=== PATIENT | female | born 1950 | race Caucasian/White ===

== ENCOUNTER → 2016-09-21 | Outpatient (CLI) | payer OTHER | LOC: BMCIMAGING 11:20 | PROVIDERS: ATTEND Internal Medicine | DX: M85.80 Other specified disorders of bone density and structure, unspecified site (principal) ==

== ENCOUNTER → 2016-11-24 | Outpatient (CLI) | payer OTHER | LOC: FIMAGING 13:43 | PROVIDERS: ATTEND Neurological Surgery | DX: M50.83 Other cervical disc disorders, cervicothoracic region (principal); Z98.1 Arthrodesis status ==

== ENCOUNTER → 2017-01-17 | Outpatient (CLI) | payer OTHER | LOC: FIMAGING 09:12 | PROVIDERS: ATTEND Physician Assistant | DX: M54.5 Low back pain (principal); M54.6 Pain in thoracic spine; M43.16 Spondylolisthesis, lumbar region; M54.2 Cervicalgia; Z98.1 Arthrodesis status ==

== ENCOUNTER → 2017-04-14 | Outpatient (CLI) | payer OTHER | LOC: BMCIMAGING 14:55 | PROVIDERS: ATTEND Internal Medicine | DX: Z12.31 Encounter for screening mammogram for malignant neoplasm of breast (principal) | CPT/HCPCS: G0202 ==

== ENCOUNTER → 2018-04-11 | Outpatient (CLI) | payer OTHER | LOC: BMCIMAGING 15:35 | PROVIDERS: ATTEND Orthopaedic Surgery Hand Surgery | DX: M18.2 Bilateral post-traumatic osteoarthritis of first carpometacarpal joints (principal) ==

== ENCOUNTER → 2018-04-19 | Outpatient (CLI) | payer OTHER | LOC: BMCIMAGING 09:43 | PROVIDERS: ATTEND Internal Medicine | DX: Z12.31 Encounter for screening mammogram for malignant neoplasm of breast (principal) ==

== ENCOUNTER 2018-04-27 07:32 | Day surgery (SDC) | payer OTHER ==
[2018-04-27] MEDS ORDERED: LIDOCAINE 1% 2 ML INJ ID PRN (07:53)
[2018-04-27] MEDS ORDERED: LR 1,000 ML IV ONE (07:53)
[2018-04-27] MEDS ORDERED: MIDAZOLAM 2 MG/2 ML VIAL IVP ONE (08:59)
--- NOTE | 2018-04-27 09:00 | POSTANESTH ---
Post Anesthetic Evaluation Cardiovascular Status: Normal, Stable Respiratory Status: Normal, Stable Level of Consciousness/Mental Status: Can Participate in Eval, Mildly Sleepy, Arousable Pain Control: Adequate, Prn Tx Ordered Nausea/Vomiting Control: Adequate, Prn Tx Ordered Complications Possibly Related to Anesthesia: None Noted
--- NOTE | 2018-04-27 09:03 | PDANEPAE ---
ANE History of Present Illness 67 yo female with gastric issues and chronic constipation for EGD and flex sig. ANE Past Medical History - Cardiovascular History Hx Hypertension: No Hx Arrhythmias: No Hx Chest Pain: No Hx Coronary Artery / Peripheral Vascular Disease: No Hx CHF / Valvular Disease: No Hx Palpitations: No Cardiovascular History Comment: MITRAL VALVE PROLAPSE - NO SXS OR MEDS - Pulmonary History Hx COPD: No Hx Asthma/Reactive Airway Disease: Yes Hx Recent Upper Respiratory Infection: No Hx Oxygen in Use at Home: No Hx Sleep Apnea: Yes Sleep Apnea Screening Result - Last Documented: Positive Pulmonary History Comment: SEASONAL ASTHMA - ENVIRONMENTAL - no ER visits for RAD. uses CPAP nightly - Neurologic History Hx Cerebrovascular Accident: No Hx Seizures: No Hx Dementia: No Neurologic History Comment: frequent migraines triggered by seasonal change, aromas - Endocrine History Hx Diabetes: No Hypothyroid: No Hyperthyroid: No Obesity: no - Renal History Hx Renal Disorders: No - Liver History Hx Hepatic Disorders: No - Neurological & Psychiatric Hx Hx Neurological and Psychiatric Disorders: Yes Neurological / Psychiatric History Comment: ANXIETY. CHRONIC PAIN - Cancer History Hx Cancer: No - Congenital Disorder History Hx Congenital Disorders: No Congenital History Comment: BASAL CELLS REMOVED - GI History Hx Gastrointestinal Disorders: Yes Gastrointestinal History Comment: IBS. ACID REFLUX - Other Health History Other Health History: NEG - Chronic Pain History Chronic Pain: Yes (LOW BACK, NECK & SHOULDERS) - Surgical History Prior Surgeries: CERVICAL DISC SURG. LUMBAR SPINAL FUSION. CERVICAL FUSION. TUBAL LIGATION. ENDOSCOPIES. COLONOSCOPIES ANE Review of Systems Review of Systems: - Exercise capacity METS (RN): 4 METS - Systems Constitutional: Reports: no symptoms Gastrointestinal: Reports: abdominal pain, constipation ANE Patient History - Allergies Allergies/Adverse Reactions: celecoxib [From Celebrex] Allergy (Verified 04/27/18 08:08) Rash hydromorphone HCl [From Dilaudid] Allergy (Verified 04/27/18 08:08) Hives - Home Medications Home Medications: Acet/Caffeine/Buta Fioricet [Fioricet] 1 - 2 each PO Q6 PRN 07/31/09 [Last Taken 04/26/18] Carisoprodol [Soma (RX)] 700 mg PO HS 07/31/09 [Last Taken 04/26/18] Hydrocodone/Acetaminophen [Browning 7.5-325 Tablet] 1 - 2 each PO Q4 PRN 07/31/09 [ Last Taken 04/26/18] Ranitidine HCl [Zantac] 300 mg PO DAILY 07/31/09 [Last Taken 04/26/18] traZODone [traZODone 150MG (RX)] 75 mg PO HS 07/31/09 [Last Taken 04/26/18] Ascorbic Acid [Vitamin C] 1,000 mg PO DAILY 01/10/14 [Last Taken Unknown] Calcium Carbonate/Vitamin D3 [Calcium 1,000 + D3 Caplet] 1 each PO DAILY [Last Taken Unknown] Cetirizine [ZyRTEC] 10 mg PO HS 01/10/14 [Last Taken 04/26/18] Cholecalciferol Vit D3 [Vitamin D3 (OTC)] 1,000 units PO DAILY 01/10/14 [Last Taken Unknown] Diazepam [Valium 10 MG (RX)] 5 mg PO BID PRN 01/10/14 [Last Taken Unknown] Fluticasone/Salmeter 100/50Mcg [Advair 100/50 (RX)] 1 puffs IH BID PRN 01/10/14 [Last Taken Unknown] Herbals/Supplements -Info Only 1 ea PO DAILY 01/10/14 [Last Taken Unknown] Polyethylene Glycol 3350 [Miralax 17 gm (OTC)] 17 gm PO DAILY 01/10/14 [Last Taken 04/26/18] Triamcinolone Acet Nasal [Nasacort Aq] 2 sprays NASAL DAILY PRN 01/10/14 [Last Taken 04/26/18] Herbals/Supplements -Info Only 1 ea PO DAILY 01/17/14 [Last Taken Unknown] Celexa 04/12/18 [Last Taken 04/26/18] Nortriptyline HCl 04/12/18 [Last Taken 04/26/18] - NPO status NPO Since - Liquids (Date): 04/26/18 NPO Since - Liquids (Time): 22:00 NPO Since - Solids (Date): 04/26/18 NPO Since - Solids (Time): 22:00 - Anes Hx Anes Hx: post operative nausea and vomiting - Smoking Hx Smoking Status: Never smoked Marijuana use: Yes - Alcohol Use Alcohol Use: Rarely - Family Anes Hx Family Anes Hx: neg - N/A Family Hx Anesthesia Complications: NEG ANE Labs/Vital Signs - Vital Signs Blood Pressure: 115/75 Heart Rate: 89 Respiratory Rate: 16 O2 Sat (%): 92 Height: 167.64 cm Weight: 54.885 kg ANE Physical Exam - Airway Neck exam: decreased ROM, spinal fusion Mallampati Score: Class 2 Mouth exam: normal dental/mouth exam - Pulmonary Pulmonary: clear to auscultation - Cardiovascular Cardiovascular: regular rate and rhythym - ASA Status ASA Status: III ANE Anesthesia Plan Anesthesia Plan: GA with mask Total IV Anesthesia: Yes
[2018-04-27] MEDS ORDERED: DEXAMETHASONE 4 MG/ML VIAL ONE (09:19)
[2018-04-27] MEDS ORDERED: LIDOCAINE 2% 5 ML SDV ONE (09:19)
[2018-04-27] MEDS ORDERED: PROPOFOL/EMULSION 500 MG/50 ML BOTTLE IV ONE (09:19)
--- NOTE | 2018-04-27 09:21 | PDGENHP ---
History & Physical Chief Complaint: Epigastric pain. Rectal pain History of Present Illness: 67 yo female with chronic constipation (narcotic induced). Epigastric pain and rectal pain. Pertinent Past, Social, Family History: PMH: Chronic pain. Cervical arthralgia. Constipation. FH: colon cancer 2nd degree relatives. SH: No tobacco. No ETOH Relevant Physical Exam: NAD. CTA B/L. RRR without m/r/g. GI soft. NT/ND. Hypoactive bowel sounds. Cardiorespiratory Assessment: EGD/Flexible sigmoidoscopy with MAC. ASA II
--- NOTE | 2018-04-27 09:33 | GIREPORT ---
[facility] Surgical Services - Endoscopy Department Patient Name: Mar Deluca Procedure Date: 04/27/2018 8:23 AM Patient Type: Outpatient Attending MD/ ER Physician: Clay Lockhart MD Procedure: Upper GI endoscopy Indications: Epigastric abdominal pain Providers: Clay Lockhart MD Medicines: Propofol per Anesthesia Complications: No immediate complications. Description of Procedure: After obtaining informed consent, the endoscope was passed under direct vision. Throughout the procedure, the patient's blood pressure, pulse, and oxygen saturations were monitored continuously. The Endoscope was intro duced through the mouth, and advanced to the second part of duodenum. The [facility] er GI endoscopy was accomplished without difficulty. The patient tolerated th e procedure well. Findings: The esophagus was normal. The stomach was normal. The examined duodenum was normal. Estimated Blood Loss: Estimated blood loss: none. Post Op Diagnosis: - Normal esophagus. - Normal stomach. - Normal examined duodenum. - No specimens collected. Recommendation: - Resume previous diet. - Continue present medications. - Patient has a contact number available for emergencies. The signs and symptoms of potential delayed complications were discussed with the pat ient. Return to normal activities tomorrow. Written discharge instructions we re provided to the patient. - Thank you for allowing me to be involved in the care of your patient. Attending Participation: I personally performed the entire procedure without the assistance of a fellow, resident or surg ical account management assistant. Clay Lochkart MD Clay Lockhart MD 04/27/2018 9:32:46 AM This report has been signed electronicallyDavid MD Chantelle Number of Addenda: 0 Note Initiated On: 04/27/2018 8:23 AM [email or web address]
--- NOTE | 2018-04-27 09:43 | GIREPORT ---
[facility] Surgical Services - Endoscopy Department Patient Name: Mar Deluca Procedure Date: 04/27/2018 9:18 AM Patient Type: Outpatient Attending MD/ ER Physician: Clay Lockhart MD Procedure: Flexible Sigmoidoscopy Indications: Anal pain, Rectal mass Providers: Clay Lockhart MD Medicines: Propofol per Anesthesia Complications: No immediate complications. Description of Procedure: After obtaining informed consent, the endoscope was passed under direct vision. Throughout the procedure, the patient's blood pressure, pulse, and oxygen saturations were monitored continuously. The Endoscope was intro duced through the anus and advanced to the splenic flexure. The flexible sigmoidoscopy was accomplished without difficulty. The patient tolerate d the procedure well. The quality of the bowel preparation was excellent. Findings: Hemorrhoids were found on perianal exam. The digital rectal exam was normal. Pertinent negatives include normal sphincter tone and no palpable rectal lesions. The entire examined colon appeared normal. Estimated Blood Loss: Estimated blood loss: none. Post Op Diagnosis: - Hemorrhoids found on perianal exam. - The entire examined colon is normal. - No specimens collected. Recommendation: - Continue present medications. - Hydrocortisone cream 2.5% TID for 7 days PRN hemorrhoid pain and swel ling. - I suspect her prolapse is more rectal prolapse related to chronic constipation (narcotic induced) and managing her bowel regimen to treat this will be most effective. - I would not recommend procedural management for her hemorrhoids (band ing or surgery) at this time. - Thank you for allowing me to be involved in the care of your patient. Attending Participation: I personally performed the entire procedure without the assistance of a fellow, resident or surg ical dental ceramist assistant. Clay Lockhart MD Clay Lockhart MD 04/27/2018 9:42:51 AM This report has been signed electronicallyDavid MD Chantelle Number of Addenda: 0 Note Initiated On: 04/27/2018 9:18 AM [email or web address]
[2018-04-27] MEDS ORDERED: ONDANSETRON 4 MG/2 ML VIAL IVP PRN (09:48)
[2018-04-27] MEDS ORDERED: LR 500 ML IV PRN (09:48)
[2018-04-27] MEDS ORDERED: NALOXONE HCL 0.4 MG/ML INJ IVP PRN (09:48)
[2018-04-27] MEDS ORDERED: DIAZEPAM 5 MG/ML 1 ML SYR IVP PRN (09:48)
[2018-04-27] MEDS ORDERED: HYDROCODONE/APAP 5/325 TAB PO PRN (09:48)
[2018-04-27 10:50] VITALS: BP 143/83
== END 2018-04-27 11:11 | disposition home or self-care (01) ==
LOC: FSGY 07:32
PROVIDERS: ATTEND Internal Medicine Gastroenterology
PROC: 0DJD8ZZ Inspection of Lower Intestinal Tract, Via Natural or Artificial Opening Endoscopic (ICD-10-PCS; principal; 2018-04-27 09:00)
PROC: 0DJ08ZZ Inspection of Upper Intestinal Tract, Via Natural or Artificial Opening Endoscopic (ICD-10-PCS; 2018-04-27 09:00)
DX: K62.89 Other specified diseases of anus and rectum (principal); K64.9 Unspecified hemorrhoids
CPT/HCPCS: J1100; J2704

== ENCOUNTER → 2018-12-13 | Outpatient (CLI) | payer OTHER | LOC: FIMAGING 10:41 ==